=== PATIENT | female | born 1990 | race American Indian/Alaskan Native ===

== ENCOUNTER 2018-03-30 11:12 | Day surgery (SDC) | payer MEDICAID ==
[2018-03-30 12:41] LABS: Hematocrit 34.7 % (30.3-42.9); Hemoglobin 11.4 gm/dl (10.1-14.3)
[2018-03-30] MEDS ORDERED: LACTATED RINGERS 1,000 ML IV SCH ×2 (13:00→14:00)
[2018-03-30] MEDS ORDERED: VERSED ONE (13:16)
[2018-03-30] MEDS ORDERED: XYLOCAINE MPF 2% ONE (13:17)
[2018-03-30] MEDS ORDERED: SUBLIMAZE ONE (13:17)
[2018-03-30] MEDS ORDERED: DIPRIVAN 10 MG/ML IV ONE (13:18)
[2018-03-30] MEDS ORDERED: ACETIC ACID 3% SOLN TP ONE (13:54)
[2018-03-30] MEDS ORDERED: XYLOCAINE 1%/ EPI 1:100,000 INFILTRATI ONE (13:54)
[2018-03-30] MEDS ORDERED: MONSEL'S TP ONE ×2 (13:54→14:22)
[2018-03-30] MEDS ORDERED: LUGOL'S SOLUTION 5% TP ONE ×2 (13:54→14:22)
[2018-03-30] MEDS ORDERED: ZOFRAN IV PRN (13:56)
[2018-03-30] MEDS ORDERED: TORADOL IV PRN (13:56)
[2018-03-30] MEDS ORDERED: DEMEROL IV PRN (13:56)
[2018-03-30] MEDS ORDERED: DILAUDID IV PRN (13:56)
--- NOTE | 2018-03-30 13:56 | Anesthesia Day of Surgery ---
Anesthesia Day of Surgery - Day of Surgery Patient Examined: Yes Patient H&P Reviewed: Yes Patient is NPO: Yes
--- NOTE | 2018-03-30 13:56 | Anesthesia Consultation ---
Anesthesia Consult and Med Hx Date of service: 03/30/18 - Airway Anesthetic Teeth Evaluation: Good ROM Head & Neck: Adequate Mental/Hyoid Distance: Adequate Mallampati Class: Class I Intubation Access Assessment: Good - Pulmonary Exam CTA: Yes - Cardiac Exam Cardiac Exam: RRR - Pre-Operative Health Status ASA Pre-Surgery Classification: ASA2 Proposed Anesthetic Plan: General - Pulmonary Hx Asthma: No - Cardiovascular System Hx Hypertension: No - Central Nervous System Hx Seizures: No Hx Psychiatric Problems: No - Endocrine Hx Renal Disease: No Hx Hypothyroidism: No Hx Hyperthyroidism: No - Hematic Hx Anemia: Yes Hx Sickle Cell Disease: Yes (Trait only) - Other Systems Hx Alcohol Use: Yes (Occas) Hx Substance Use: Yes (Marijuana daily) Hx Cancer: No
[2018-03-30] MEDS ORDERED: DECADRON ONE (14:10)
[2018-03-30] MEDS ORDERED: ZOFRAN ONE (14:10)
[2018-03-30] MEDS ORDERED: NACL 0.9% IR ONE (14:23)
--- NOTE | 2018-03-30 14:44 | Operative Report ---
Operative Report Operative Report: Preoperative diagnosis: Mod-severe cervical dysplasia. Postoperative diagnosis: same. Procedure: LEEP of the crevix. Surgeon: Dr. Thapa. Community Health Nursing Director: none Anesthesia: IV sedation EBL: none IVF: RL 1 liter. Procedure details: Risks, benefits, and alternatives of the procedure were discussed in detail with the patient which included but not limited to the risk of infection, hemorrhage requiring blood transfusion, shortened cervix which can result in cervical incompetence and the need for cerclage in future pregnancies. The patient expressed understanding, her questions were answered, and she gave informed consent. The patient was taken to the operating room with an IV fluid infusing ringers lactate. In the operating room, she was placed in a dorsal supine position and given IV sedation with MAC. Then, she was placed on the stirrups in the dorsolithotomy position. The perineum, vagina and cervix were washed and she was prepared and draped in usual sterile fashion. A weighted speculum was placed under posterior vaginal wall. Lugol's solution was applied to the cervix. The dysplastic area were visible. The cautery was used to perform the LEEP procedure and the specimen was sent to pathology. The base of the cervix was cauterized using the Bovie. Monsel's solution was applied. The counts of laps, needles, sponges, and instruments were correct 2. The patient tolerated the procedure well. She was awakened from the anesthesia and taken to the recovery room in a stable condition.
--- NOTE | 2018-03-30 16:23 | Post Anesthesia Evaluation ---
- Post Anesthesia Evaluation Patient Participated: Yes Airway Patent: Yes Stable Respiratory Function: Yes Nausea/Vomiting: No Temp > 96.8F: Yes Pain Manageable: Yes Adequeate Hydration: Yes Anesthesia Complications: No
[2018-03-30 18:57] VITALS: BP 108/62
== END 2018-03-30 11:13 | disposition home or self-care (01) ==
LOC: OR 11:12
PROVIDERS: ATTEND Obstetrics & Gynecology
DX: N87.0 Mild cervical dysplasia (principal); G43.909 Migraine, unspecified, not intractable, without status migrainosus; D57.3 Sickle-cell trait; Z79.899 Other long term (current) drug therapy; Z72.89 Other problems related to lifestyle; Z98.891 History of uterine scar from previous surgery; Z98.890 Other specified postprocedural states; Z80.3 Family history of malignant neoplasm of breast
CPT/HCPCS: 36415; 57522; 81025; 85014; 85018; 88307; J1100; J1170; J1885; J2250; J2405; J2704; J3010; J7120